=== PATIENT | female | born 1980 | race African-American/Black ===

== ENCOUNTER 2019-05-30 21:15 | Emergency (ER) | payer MEDICAID ==
[~2019-05-30] VITALS: Ht 152.4 cm; Wt 100.9 kg
[2019-05-30 21:21] VITALS: BP 147/113; Ht 152.4 cm; Wt 100.9 kg
[2019-05-30] MEDS ORDERED: GLUCOTROL 5 MG T5 MG PO (21:22)
[2019-05-30] MEDS ORDERED: GLUCOPHAGE500 MG PO (21:22)
[2019-05-30] MEDS ORDERED: VICTOZA0.6 MG/0.1 SQ (21:22)
[2019-05-30 21:46] LABS: BASOPHILS 0.3 % (0-2); EOSINOPHILS 3.9 % (0-7); HEMATOCRIT 36.7 % (36.0-48.0); HEMOGLOBIN 12.3 g/dL (12-16); IMMATURE GRANULOCYTES 0.3 % (0-5); LYMPHOCYTES 36.2 % (15-50); MCH 29.7 pg (26.0-34.0); MCHC 33.5 g/dL (31.0-37.0); MCV 88.6 fL (80.0-100.0); MEAN PLATELET VOLUME 10.1 fL (7.4-10.4); MONOCYTES 5.4 % (2-11); NEUTROPHILS 53.9 % (40-80); PLATELET COUNT 312 10x3/uL (130-400); RBC 4.14 10x6/uL (4.00-5.40); RDW 12.7 % (11.5-14.5); WBC 9.5 10x3/uL (4.8-10.8)
[2019-05-30 21:56] LABS: ANION GAP 11.1 mmol/L (8-16); CALCIUM 9.4 mg/dL (8.5-10.1); CARBON DIOXIDE 27.9 mmol/L (21.0-32.0); CREATININE - SERUM 0.9 mg/dL (0.6-1.3)
[2019-05-30 22:01] LABS: ALBUMIN 3.6 g/dL (3.4-5.0); BILIRUBIN - TOTAL 0.27 mg/dL (0.2-1.3); MAGNESIUM - SERUM 1.8 mg/dL (1.8-2.4); PROTEIN - SERUM 8.3 g/dL (6.4-8.2)
[2019-05-30] MEDS ORDERED: NAPROSYN500 MG PO (22:04)
== END 2019-05-30 22:35 | disposition home or self-care (01) ==
LOC: D.ER 21:15
PROVIDERS: Family Medicine
DX: M70.972 Unspecified soft tissue disorder related to use, overuse and pressure, left ankle and foot (principal); M70.971 Unspecified soft tissue disorder related to use, overuse and pressure, right ankle and foot; Y93.9 Activity, unspecified; E11.9 Type 2 diabetes mellitus without complications; Z79.84 Long term (current) use of oral hypoglycemic drugs

== ENCOUNTER 2020-03-13 15:43 | Emergency (ER) | payer OTHER ==
[~2020-03-13] VITALS: Ht 152.4 cm; Wt 101.8 kg
[~2020-03-13 15:43] MED LIST: GLIMEPIRIDE4 MG PO; GLUCOPHAGE500 MG PO; GLUCOTROL 5 MG T5 MG PO; LIPITOR20 MG PO; NAPROSYN500 MG PO; PLAVIX75 MG PO; VICTOZA0.6 MG/0.1 SQ
[2020-03-13 15:53] VITALS: Ht 152.4 cm; Wt 101.8 kg
[2020-03-13] MEDS ORDERED: LIORESAL 10 MG10 MG PO (17:11)
[2020-03-13 17:38] VITALS: BP 148/86
== END 2020-03-13 17:38 | disposition home or self-care (01) ==
LOC: D.ER 15:43
DX: S16.1XXA Strain of muscle, fascia and tendon at neck level, initial encounter (principal); S29.012A Strain of muscle and tendon of back wall of thorax, initial encounter; S93.401A Sprain of unspecified ligament of right ankle, initial encounter; V89.2XXA Person injured in unspecified motor-vehicle accident, traffic, initial encounter; Y93.9 Activity, unspecified; Y92.9 Unspecified place or not applicable; E11.9 Type 2 diabetes mellitus without complications; J45.909 Unspecified asthma, uncomplicated; Z79.84 Long term (current) use of oral hypoglycemic drugs; R51.9 Headache, unspecified

== ENCOUNTER → 2020-11-11 12:40 | Outpatient (CLI) | payer BC ==
[2020-03-13 15:53] VITALS: BMI 43.8
--- NOTE | ~2020-11-11 | EC ---
PATIENT:ANDRA ALMONTE DATE OF SERVICE: 11/11/20 SEX: F MEDICAL RECORD: [id number] DATE OF : [birth year] LOCATION:D[facility] AGE OF PATIENT: 40 ADMISSION DATE: 11/11/20 REFERRING PHYSICIAN: INTERPRETING PHYSICIAN: RUDOLPH BROCK MD ECHOCARDIOGRAM REPORT ECHO CHARGES 4 ECHO COMPLETE Date: 11/11/20 CLINICAL DIAGNOSIS: CAD/ASSESS EF AND VALVES ECHOCARDIOGRAPHIC MEASUREMENTS (adult normal given) AC root (d.<3.7cm) 3.3 cm LV Septum d (<1.2 cm> 1.7 cm Valve Excursion 1.4 cm LV Septum (systole) 2.0 cm Left Atria (s.<4.0cm> 3.4 cm LVPW d(<1.2cm) 2.2 cm RV (d.<2.3cm) 2.8 cm LVPW (sytole) 2.4 cm LV diastole(<5.6CM) 3.5 cm MV E-F(>70mm/sec) cm LV systole 1.6 cm LVOT Diameter 1.9 cm MV exc.(>10mm) 1.3 cm Est.ejection fraction (50-75%) % DOPPLER: LVIT cm/sec A 111.0cm/sec E 83.0 cm/sec LA cm/sec RVSP 14 mmHg LVOT 111 cm/sec AOP1/2T m/s Asc. Ao 138 cm/sec RVOT 86 cm/sec RA cm/sec PA 109 cm/sec AV Gradient Peak 7.58 mmHg AV Mean 4.39 mmHg AV Area 2.4 cm MV Gradient Peak 3.84 mmHg MV Mean 2.05 mmHg MV Area cm COMMENTS: Technical Assistance Consultant: 2 CARTER SYKES Sales And Marketing Professional: 3 Dr. Fitch TAPE# PACS Pericardial Effusion N DATE OF SERVICE: Adequate 2D, color flow imaging, spectral Doppler, and M-Mode. LVH is present. LV internal dimensions are normal. Wall motion normal. EF greater than or equal to 55%. Aortic valve is tricuspid. No evidence of stenosis by Doppler interrogation. Left atrium is normal. Mitral valve shows no prolapse. Trace MR. Right-sided chambers are grossly normal. Trace TR. TRANSINT:[id number] Voice Confirmation ID: [id number] DOCUMENT ID: [id number] ECHOCARDIOGRAM REPORT [id number] SUZY,RUDOLPH SHEARER MD CC: [id number] DICTATION DATE: 11/11/20 1645 SUPERVISOR CORE SHOP: 11/12/20 0020 DEP CLI 11/11/20 [place] [id number] [facility] [place] [address]
[~2020-11-11 12:40] MED LIST changes: +LIORESAL 10 MG10 MG PO
== END | disposition home or self-care (01) ==
LOC: D.HCCECHO 12:30
PROVIDERS: ATTEND Internal Medicine Interventional Cardiology
DX: I25.10 Atherosclerotic heart disease of native coronary artery without angina pectoris (principal)